=== PATIENT | male | born 1955 | race Caucasian/White ===

== ENCOUNTER 2024-03-25 13:55 | Inpatient (IN) | payer MEDICARE, SELFPAY ==
[2024-03-25 13:57] VITALS: BP 163/104; PULSE 92; RESP 18; TEMP 36.3; O2SAT 100
[2024-03-25 16:29] VITALS: BP 179/98; O2SAT 97
[2024-03-25 16:33] VITALS: BMI 24.9
--- NOTE | 2024-03-25 17:37 | US_ITS ---
EXAM: VENOUS DUPLEX IMAG/CHRIS EXTREM CLINICAL HISTORY: Bilateral edema. COMPARISON: None. TECHNIQUE: Grayscale, color flow and doppler analysis of the bilateral lower extremity deep venous system. FINDINGS: There is no intraluminal echogenicity to suggest acute or chronic deep venous thrombosis. Appropriate respiratory variation, augmentation and venous compression is noted. Bilateral soft tissue edema is noted. US/Venous Duplex Imag/Chris Extrem IMPRESSION: No sonographic evidence of a deep venous thrombosis. Reading Location: [id number]
--- NOTE | 2024-03-25 17:37 | EKG12_ITS ---
Test Reason : Blood Pressure : */* mmHG Vent. Rate : 88 BPM Atrial Rate : 88 BPM P-R Int : 182 ms QRS Dur : 110 ms QT Int : 372 ms P-R-T Axes : 29 -9 53 degrees QTcB Int : 450 ms Poor data quality, interpretation may be adversely affected Normal sinus rhythm Minimal voltage criteria for LVH, may be normal variant ( Esvin product ) Borderline ECG Confirmed by SINA PERAZA, JENY ([id number]), editor house organ MALIK VAUGHAN ([id number]) on 03/28/2024 7:23:07 AM Referred By: Confirmed By: JENY ANDINO MD
--- NOTE | 2024-03-25 17:37 | CT_ITS ---
PROCEDURE: SPINE LUMBAR WITHOUT CONTRAST REASON FOR EXAM: Unknown indication.. TECHNIQUE: Lumbar spine CT without contrast. COMPARISON: None. FINDINGS: Vertebrae: Large lytic lesion within the L2 and S1. Additional smaller lytic lesions throughout the remainder of the visualized spine. Alignment: S shaped scoliosis. [id number] degenerative changes throughout the visualized spine. Sacrum: Visualized upper sacrum and SI joints are unremarkable. Bilateral renal calculi. Severely enlarged prostate with internal calcifications. Enlarged bilateral iliac lymph nodes. 1 left pelvic sidewall lymph node measures [address]/Spine Lumbar without Contrast IMPRESSION: Lytic lesions throughout the visualized spine suspicious for metastatic disease . Large lytic lesions within S1 and L2 suspicious for an imminent pathologic frac ture. Bilateral nephrolithiasis. Severely enlarged prostate with internal calcifications suspicious for an under lying mass. Correlate with PSA. Pelvic lymphadenopathy suspicious for metastatic disease. One or more dose reduction techniques were used (e.g., Automated exposure contr ol, adjustment of the mA and/or kV according to patient size, use of iterative reconstruction technique). Reading Location: [id number]
[2024-03-25] MEDS: Ondansetron 4 MG/2 ML Vial IV (17:52)
[2024-03-25] MEDS: Morphine 4 MG/ML Syringe IV (17:52)
[2024-03-25 17:59] LABS: Bacteria 0 SEEN /hpf (None Seen); Mucous, Urine 0 SEEN /hpf (<or=2+)
[2024-03-25 18:00] VITALS: BP 176/96; PULSE 88; RESP 18; O2SAT 99
--- NOTE | 2024-03-25 18:00 | EX.ED.DYSGE1 ---
HPI History of Present Illness Chief Complaint: Edema Narrative Narrative: Chief complaint and HPI: Bilateral lower extremity edema and left leg pain. 69-year-old male with past medical history of Parkinson's disease, HTN, peripheral edema presents for evaluation of bilateral lower extremity edema and left leg pain. Patient states that he has had right lower extremity for several years. He had a huge cardiac workup and 2022 with the [facility]. He was able to show me the results on his phone. He states that he was not diagnosed with CHF but was put on Lasix. He had a stress test that was unremarkable. Patient states since then he has developed bilateral lower extremity swelling. Patient states that the left lower extremity has been swelling for about a year. He denies any recent travel or surgery. No history of DVT. Patient states for the past 2 weeks he has been having throbbing pain from his left buttocks down into his left lower extremity. Triage note states that it has been numb for a week. Patient denies numbness to me. I asked him if it feels like [id number] or tingling. He states now it has throbbing pain. He states that the pain is making it difficult to ambulate at home. He denies any recent fall or injury. He states that he did previously injure his back years ago. Denies weakness, urinary retention, stool or urinary incontinence, saddle anesthesia, recent invasive manipulation of the spine, intravenous drug use, or fever. Denies any shortness of breath, chest pain abdominal pain, nausea, vomiting, dysuria. Patient states he could not take the pain today which is why he presents. Review of systems: See HPI Medications: As listed on the chart Allergies: As listed on the chart PFSH: Per chart Vital signs: As listed on the chart. Reviewed. Physical exam: Gen: A&O x3, NAD Head: Normocephalic, atraumatic Eyes: No sclera icterus, conjunctiva clear, PERRL, EOMI ENT: Moist mucous membranes Neck: Trachea midline, No JVD, full range of motion, nontender CV: RRR, no murmurs, +2 pitting peripheral edema bilaterally Resp: Lungs CTA BL, no w/r/c GI: Abd soft, non-distended, non-tender, no r/r/g Musc: Moves all extremities but has pain in his left buttock that radiates down his left leg with movement of the left lower extremity, no midline spinal tenderness, no bony step-offs, no signs of trauma or infection, mild tenderness to palpation of the left paraspinal musculature of the lumbar spine, no deformity, strength +4/5 in both bilateral lower extremities-states this is his baseline, DTR +2/5, sensation intact, no saddle paresthesias Skin: Warm, dry, intact Neuro: Alert, oriented, grossly intact, sensation intact, no focal deficits Psych: Cooperative, appropriate mood and affect PFSH PFS Medical History no medical history Home Medications ?Medication ?Instructions ?Recorded ?Last Taken ?Type carbidopa 25 mg-levodopa 100 mg 3 tab PO TID 03/25/24 Unknown History tablet metoprolol succinate 25 mg 25 mg PO DAILY 03/25/24 Unknown History tablet,extended release 24 hr omega 5-vnf-snb-fish oil 1,200 mg cap PO 03/25/24 Unknown History (144 mg-216 mg) capsule (Fish Oil) Allergy/AdvReac Type Severity Reaction Status Date / Time No Known Allergies Allergy Verified 03/25/24 13:56 Family History no significant family his Surgical History no surgical history Social History Smoking Status: Never smoker EXAM Physical Exam Const Vital Signs: 03/25/24 13:57 03/25/24 16:29 03/25/24 18:00 Temperature 97.4 F L Temperature Source Oral Pulse Rate 92 88 Respiratory Rate 18 18 Blood Pressure 163/104 H 179/98 H 176/96 H Blood Pressure Mean 123 125 122 Pulse Ox 100 97 99 Oxygen Delivery Method Room Air Room Air Room Air 03/25/24 20:00 03/25/24 20:49 03/25/24 22:00 Temperature 98.7 F Temperature Source Pulse Rate 90 95 93 Respiratory Rate 16 18 16 Blood Pressure 165/99 H 184/114 H 174/99 H Blood Pressure Mean 121 137 124 Pulse Ox 97 97 93 Oxygen Delivery Method Room Air Room Air 03/26/24 00:00 Temperature Temperature Source Pulse Rate 95 Respiratory Rate 16 Blood Pressure 162/94 H Blood Pressure Mean 116 Pulse Ox 95 Oxygen Delivery Method Room Air MDM MDM MDM Narrative Medical decision making narrative: 69-year-old male with past medical history of Parkinson's disease, HTN, peripheral edema presents for evaluation of bilateral lower extremity edema and left leg pain. Differential diagnosis includes but is not limited to CHF, DVT, sciatica, radiculopathy, pathologic fracture, UTI, electrolyte abnormality. Morphine and Zofran ordered for symptoms. Laboratory workup ordered including CT lumbar spine and bilateral venous duplex. There is no neurologic findings to suggest an acute cauda equina syndrome therefore I do not think any emergent MRI is warranted at this time. EKG and chest x-ray reviewed see below. CBC without leukocytosis or anemia. Coagulation panel unremarkable. BMP without significant electrolyte abnormality or ESSENCE. Troponin unremarkable. BNP unremarkable. UA positive for blood and negative for UTI. Venous duplex negative. CT of the lumbar spine shows lytic lesions throughout the visualized spine suspicious for metastatic disease. There is a large lytic lesion within S1 and L2 suspicious for an imminent pathologic fracture. Bilateral nephrolithiasis. Severely enlarged prostrate with internal calcifications suspicious for an underlying mass. Pelvic lymphadenopathy suspicious for metastatic disease. I suspect patient's bilateral lower extremity swelling may be secondary to his pelvic lymphadenopathy. His pain is likely secondary to his new diagnosis of likely prostate cancer with metastatic disease. Patient will warrant admission and further management and workup. I updated the patient as well as his daughter with all of the findings. Patient is agreement to plan. I spoke with the hospitalist service, Dr. Davila. She spoke with the spinal surgeon Dr. Robles who recommends transfer to a tertiary care facility as if he develops fracture he will likely need surgery which we are unable to manage here at [facility]. I updated the family and they are in agreement with plan. I reached out to [facility], [facility] and no beds are available at this time for transfer. I did contact and spoke with their spine orthopedic surgeon Dr. Cosme. He agrees with transfer to however recommends admission via the oncology service. He did state that if the patient remains here in our hospital in the morning he recommends MRI of the entire spine. He agrees that no emergent MRI is needed at this time. I spoke with the oncology team Dr. Gutierrez. With . He accepted the transfer to the oncology service. At this point in time there is no beds available at . Likely will not get transferred this evening. I spoke with Dr. Davila about this and she accepted admission to [facility] until transfer can be able to be arranged. EKG: Interpreted by me/EM physician: EKG shows normal sinus rhythm with LVH. No acute ischemic changes. Heart rate 88. Diagnostic: Interpreted by me/EM physician: Chest x-ray not pneumonia, effusion, cardiomegaly, pneumothorax Impression: 1. Lytic lesions throughout the lumbar spine suspicious for metastatic disease 2. Suspected prostate cancer 3. Pelvic lymphadenopathy 4. Bilateral peripheral edema 5. Left lower extremity pain/radiculopathy Lab Data Labs: Laboratory Results - last 24 hr 03/25/24 03/25/24 17:45 17:50 WBC 7.8 RBC 4.53 L Hgb 13.8 Hct 41.4 MCV 91.4 MCH 30.5 MCHC 33.3 RDW Std Deviation 40.9 RDW Coeff of Nguyễn 12.3 Plt Count 267 MPV 9.3 Immature Gran % (Auto) 1.400 H Neut % (Auto) 76.1 H Lymph % (Auto) 13.7 L [place] % (Auto) 7.0 Eos % (Auto) 1.3 Baso % (Auto) 0.5 Absolute Neuts (auto) 6.0 Absolute Lymphs (auto) 1.07 Nucleated RBC % 0 PT 14.4 INR 1.1 APTT 28.5 Sodium 141 Potassium 3.4 L Chloride 107 Carbon Dioxide 28.0 Anion Gap 6 BUN 22 H Creatinine 0.99 Estim Creat Clear Calc 75.12 Est GFR (MDRD) Af Amer 96 Est GFR (MDRD) Non-Af 79 BUN/Creatinine Ratio 22.3 H Glucose 96 Calcium 9.8 Troponin I High Sens 15 B-Natriuretic Peptide 60.7 Urine Color Yellow Urine Clarity Clear Urine pH 7.0 Ur Specific [place] 1.010 Urine Protein 15 H Urine Glucose (UA) Normal Urine Ketones 5 H Urine Occult Blood 50 H Urine Nitrite Negative Urine Bilirubin Negative Urine Urobilinogen Normal Ur Leukocyte Esterase Negative Urine RBC 0-5 SEEN Urine WBC 0-5 SEEN Ur Squamous Epith Cells 0-5 SEEN Amorphous Sediment 1+ Urine Bacteria 0 SEEN Coarse Granular Casts 0-5 SEEN Urine Mucus 0 SEEN Radiography Diagnostic Testing: Clinical Impression(s) from Imaging Studies Lumbar Spine CT 03/25/24 17:37 IMPRESSION: Lytic lesions throughout the visualized spine suspicious for metastatic disease. Large lytic lesions within S1 and L2 suspicious for an imminent pathologic fracture. Bilateral nephrolithiasis. Severely enlarged prostate with internal calcifications suspicious for an underlying mass. Correlate with PSA. Pelvic lymphadenopathy suspicious for metastatic disease. One or more dose reduction techniques were used (e.g., Automated exposure control, adjustment of the mA and/or kV according to patient size, use of iterative reconstruction technique). Reading Location: [facility] Venous Duplex 03/25/24 17:37 IMPRESSION: No sonographic evidence of a deep venous thrombosis. Reading Location: [facility] Chest X-Ray 03/25/24 18:09 IMPRESSION: No acute cardiopulmonary abnormalities. No acute cardiopulmonary abnormalities. Reading Location: [facility] Discharge Plan Triage Chief Complaint: Edema ED Provider: Ivan Flores Dx/Rx/DC Orders Prescriptions: No Action metoprolol succinate 25 mg tablet extended release 24 hr 25 mg PO DAILY carbidopa-levodopa 25-100 mg tablet 3 tab PO TID omega 8-yqs-qzb-fish oil [Fish Oil] 1,200 (144-216) mg capsule PO Primary Care Provider: Danna Delgadillo OBSERVATORY DIRECTOR Referrals: Danna Delgadillo OBSERVATORY DIRECTOR, OBSERVATORY DIRECTOR-C [Primary Care Provider] - Print Language: Sami
[2024-03-25 18:03] LABS: Color, Urine Yellow (Yellow); Glucose, Dipstick Normal (Normal); Ketone-Dipstick 5 mg/dl (Negative); Leukocyte Esterase-Dipstick Negative /ul (Negative); Nitrite-Dipstick Negative (Negative); Occult Blood-Urine 50 /ul (Negative); Protein-Dipstick 15 mg/dl (Negative); Urine Bilirubin Dipstick Negative (Negative); Urine Clarity Clear (Clear); Urine Urobilinogen Normal (Normal)
[2024-03-25 18:04] LABS: Absolute Lymphocyte Count 1.07 X10^3/uL (0.83-4.51); Basophil# 0.04 X10^3/uL; Basophil% 0.5 % (0-1); Eosinophils% 1.3 % (0-5); Hematocrit 41.4 % (40-54); Hemoglobin 13.8 g/dL (13.0-16.5); Lymphocyte # 1.07 X10^3/ul (0.83-4.51); Lymphocyte % 13.7 % (19-41); Mean Corp Hgb Conc 33.3 g/dL (32-36); Mean Corpuscular Hgb 30.5 pg (27.0-32.0); Mean Corpuscular Volume 91.4 fL (80-94); Mean Platelet Vol. 9.3 fl (6.2-12.0); Monocyte# 0.55 X10^3/uL; NRBC Flagged by Analyzer 0 % (0-5); Neutrophil # 5.96 X10^3/uL (2.7-7.7); Neutrophil % 76.1 % (47-70); Platelet Count 267 K/mm3 (150-450); RBC Distribution Width CV 12.3 % (11.6-14.6); RBC Distribution Width SD 40.9 fl (35.1-43.9); Red Blood Count 4.53 M/mm3 (4.6-6.2); White Blood Count 7.8 K/mm3 (4.4-11.0)
--- NOTE | 2024-03-25 18:09 | RAD_ITS ---
PROCEDURE: CHEST 1 VIEW (PORTABLE) REASON FOR EXAM: Left leg numbness for 1 week. TECHNIQUE: Frontal view of the chest. COMPARISON: None. FINDINGS: The cardiac and mediastinal contours are normal. Mild left basilar linear atelectasis. Calcified right perihilar lymph nodes. RAD/Chest 1 View (Portable) IMPRESSION: No acute cardiopulmonary abnormalities. No acute cardiopulmonary abnormalities. Reading Location: [id number]
[2024-03-25 18:21] LABS: International Normalized Ratio 1.1; Partial Thromboplast Time 28.5 Seconds (24.1-36.2); Prothrombin Time (Protime)PT. 14.4 SECONDS (11.7-14.9)
[2024-03-25 18:30] LABS: Anion Gap 6 (5-15); BUN 22 mg/dL (7-18); BUN/Creat Ratio 22.3 RATIO (10-20); Calcium,Total 9.8 mg/dL (8.5-10.1); Chloride 107 mmol/L (98-107); Creatinine, Serum 0.99 mg/dL (0.70-1.30); EST Glomerular Filtration Rate 79 mL/min (>60); Est Glom Filt Rate - Afr Amer 96 mL/min (>60); Estimated Creatinine Clearance 75.12 ml/min; Glucose 96 mg/dL (74-106); Potassium 3.4 mmol/L (3.5-5.1); Sodium Level 141 mmol/L (136-145); Troponin-I HS 15 pg/mL (3.0-78.0)
[2024-03-25 18:33] LABS: BNP,B-Type NATRIURETIC PEPTIDE 60.7 pg/mL (0-100)
[2024-03-25 18:58] LABS: Amorphous Sediment 1+; Coarse Granular Cast 0-5 SEEN /lpf (0-5 /lpf); Red Blood Cells-Urine 0-5 SEEN /hpf (0-5); Squamous Epithelial Cells - UA 0-5 SEEN /hpf (0-5); White Blood Cells 0-5 SEEN /hpf (0-5)
[2024-03-25 20:00] VITALS: BP 165/99; PULSE 90; RESP 16; O2SAT 97
[2024-03-25 20:49] VITALS: BP 184/114; PULSE 95; RESP 18; TEMP 37.1; O2SAT 97
[2024-03-25 22:00] VITALS: BP 174/99; PULSE 93; RESP 16; O2SAT 93
--- NOTE | 2024-03-25 22:58 | ED.RN ---
THIS DETASSELER CALLED [facility], [facility] AND [facility] ALL DECLINED PT DUE TO CRITICAL CAPACITY.
--- NOTE | 2024-03-25 23:44 | PCM.HP.STD ---
[facility] - General General Date of Admission: 03/25/24 Date of Service: 03/25/24 Chief Complaint: Lumbar back pain with LLE radiculopathy, worsening LE edema. HPI Narrative The patient is a 69-year-old male with past medical history hypertension, Parkinson's disease as well as chronic distal lower extremity edema with chronic pain associated ongoing for several years with significant previous evaluation at the [facility] who presents to the [facility] ED on 03/25/2024 secondary to significant bilateral lower extremity swelling ongoing for the last year however over the last 2 weeks has had increasing throbbing discomfort into his left buttock and down his left lower extremity with paresthesias ongoing for a week described as [id number] making it difficult to ambulate with no recent falls or injuries but does state years ago he did have an injury to his back with no specific focal weakness or saddle paresthesias or urinary issues or bowel issues but given pain prompted ED evaluation. He states he was recently seen and evaluated with an [employer] and cardiology 02/25/2024 and thus far his cardiac workup has not been marked with planned future upcoming echocardiogram. He notes that his left lower extremity feels like it is constantly throbbing but no severe pain. He does note ongoing lumbar back discomfort again more dull aching and constant as opposed to stabbing. He does report approximate 10 pound weight gain but this is because he has been less active and watching what he is been eating although his appetite has been decreased. He denies any fevers or chills or night sweats. Workup in the ED included T97.4, heart rate 92, BP 163/104, respiratory rate 18, 100% on room air with most recent repeat vitals T98.7, heart rate 95, BP 184/114, respiratory rate 18, 97% on room air, CBC with WBC 7.8, hemoglobin 13.8, platelet 267 with increased immature granulocytes, unremarkable coags, BMP with potassium 3.4, BUN/creatinine 22/0.99, GFR 79, troponin 15, BNP 60.7, urinalysis unremarkable, CT of the lumbar spine without contrast with lytic lesions throughout the visualized spine suspicious for metastatic disease, large lytic lesions within S1 and L2 suspicious for imminent pathologic fracture, bilateral nephrolithiasis, severely enlarged prostate with internal calcifications suspicious for underlying mass, pelvic lymphadenopathy suspicious for metastatic disease, bilateral lower extremity duplex ultrasounds with no evidence of DVT, chest x-ray no acute cardiopulmonary findings. Given these findings hospitalist discussed case with orthospine and given concerns for impending pathological fractures recommended transfer to tertiary facility for these to be evaluated for potential surgical intervention. Patient was accepted at (Dr. Gutierrez) with Case discussed per ED with orthopedic surgery as well as the oncology service who agreed these interventions were necessary however there were no beds available thus patient was admitted to [facility] temporarily until bed available. The orthopedic service requested that if patient did not transfer in a timely fashion for service to obtain MRI of the cervical, thoracic and lumbar spine with contrast in the interim. [facility] Medical History HTN (hypertension) Parkinson disease Medical History no medical history Home Medications ?Medication ?Instructions ?Recorded ?Last Taken ?Type carbidopa 25 mg-levodopa 100 mg 3 tab PO TID 03/25/24 Unknown History tablet metoprolol succinate 25 mg 25 mg PO DAILY 03/25/24 Unknown History tablet,extended release 24 hr omega 5-jio-tdi-fish oil 1,200 mg cap PO 03/25/24 Unknown History (144 mg-216 mg) capsule (Fish Oil) Allergy/AdvReac Type Severity Reaction Status Date / Time No Known Allergies Allergy Verified 03/25/24 13:56 Family History (Updated 03/26/24 @ 00:[address] Sanaz Davila MD) Mother No problems noted. Father CAD (coronary artery disease) Heart disease Hypertension Myocardial infarction Family History no significant family his Surgical History History of lithotripsy Surgical History no surgical history Social History (Updated 03/26/24 @ 00:[address] Sanaz Davila MD) household members: family Smoking Status: Never smoker alcohol intake: never substance use type: does not use ROS ROS Narrative Admission Review of Systems: CONSTITUTIONAL: No weight loss, fever, chills, + weakness or fatigue. HEENT: Eyes: No visual loss, blurred vision, double vision or yellow sclerae. Ears, Nose, Throat: No hearing loss, sneezing, congestion, runny nose or sore throat. SKIN: No rash or itching, lesions, wounds. CARDIOVASCULAR: + Significantly increased bilateral lower extremity edema. No chest pain, chest pressure or chest discomfort, palpitations, orthopnea, syncopal events. RESPIRATORY: No shortness of breath, cough or sputum, wheezing, hemoptysis. GASTROINTESTINAL: + Decreased appetite. No nausea, vomiting or diarrhea, abdominal pain, melena, BRBPR. GENITOURINARY: No dysuria, frequency, urgency or retention. NEUROLOGICAL: + Debility, weakness, lumbar pain with left lower extremity radiculopathy. No headache, dizziness, syncope, paralysis, ataxia, focal weakness, change in bowel or bladder control, seizure. MUSCULOSKELETAL: + muscle, back pain, joint pain or stiffness. HEMATOLOGIC: No anemia, bleeding or bruising. LYMPHATICS: No enlarged nodes. No history of splenectomy. PSYCHIATRIC: No history of depression or anxiety. ENDOCRINOLOGIC: No reports of sweating, cold or heat intolerance. No polyuria or polydipsia. ALLERGIES: No history of asthma, hives, eczema or rhinitis. Vital Signs Vital Signs Vital Signs: 03/25/24 13:57 03/25/24 16:29 03/25/24 18:00 Temperature 97.4 F L Temperature Source Oral Pulse Rate 92 88 Respiratory Rate 18 18 Blood Pressure 163/104 H 179/98 H 176/96 H Blood Pressure Mean 123 125 122 Pulse Ox 100 97 99 Oxygen Delivery Method Room Air Room Air Room Air 03/25/24 20:00 03/25/24 20:49 03/25/24 22:00 Temperature 98.7 F Temperature Source Pulse Rate 90 95 93 Respiratory Rate 16 18 16 Blood Pressure 165/99 H 184/114 H 174/99 H Blood Pressure Mean 121 137 124 Pulse Ox 97 97 93 Oxygen Delivery Method Room Air Room Air Weight Weight: 183 lb 13.848 oz Body Mass Index (BMI) 24.9 Physical Exam Narrative Physical Examination: General: Awake, alert, oriented x 3 and cooperative, seated upright in the ED bed, notes ongoing throbbing to the lower extremity and discomfort of the lumbar back pain primarily left-sided. Skin: Normal color, normal turgor, no icterus, no cyanosis except very staged ecchymoses, abrasions, venous stasis disease to bilateral lower extremities evident. HEENT: AT/NC, EOMI, PERRLA, mildly dry MM, no carotid bruits or JVD noted. Lungs: Diminished, greater bases, appropriate effort, no rales, ronchi or wheezing. Heart: Mildly tachycardic with regular rhythm; no gallop, rub audible. Abdomen: Soft, NTTP, ND, distant normal BS, no appreciated HSM. Extremities: No cyanosis, no clubbing, significant pedal to upper thigh edema bilaterally. Neurological: Patient awake, alert, oriented as noted, cognitive function intact; pupils equally reactive to light and accommodation, cranial nerves gross normal, moving all 4 extremities, no focal deficits, strength severely globally decreased. Psychiatric: Affect appears flat, no acute evidence of depressive or anxiety feelings but given recent discussions with likely new onset metastatic cancer does appear to be in somewhat of a state of shock. Results Lab / Micro Data 03/25/24 17:50 03/25/24 17:50 Labs: Laboratory Results - last 24 hr 03/25/24 17:45: Urine Color Yellow, Urine Clarity Clear, Urine pH 7.0, Ur Specific [place] 1.010, Urine Protein 15 H, Urine Glucose (UA) Normal, Urine Ketones 5 H, Urine Occult Blood 50 H, Urine Nitrite Negative, Urine Bilirubin Negative, Urine Urobilinogen Normal, Ur Leukocyte Esterase Negative, Urine RBC 0-5 SEEN, Urine WBC 0-5 SEEN, Ur Squamous Epith Cells 0-5 SEEN, Amorphous Sediment 1+, Urine Bacteria 0 SEEN, Coarse Granular Casts 0-5 SEEN, Urine Mucus 0 SEEN 03/25/24 17:50: WBC 7.8, RBC 4.53 L, Hgb 13.8, Hct 41.4, MCV 91.4, MCH 30.5, MCHC 33.3, RDW Std Deviation 40.9, RDW Coeff of Nguyễn 12.3, Plt Count 267, MPV 9.3, Immature Gran % (Auto) 1.400 H, Neut % (Auto) 76.1 H, Lymph % (Auto) 13.7 L, [place] % (Auto) 7.0, Eos % (Auto) 1.3, Baso % (Auto) 0.5, Absolute Neuts (auto) 6.0, Absolute Lymphs (auto) 1.07, Nucleated RBC % 0, PT 14.4, INR 1.1, APTT 28.5, Sodium 141, Potassium 3.4 L, Chloride 107, Carbon Dioxide 28.0, Anion Gap 6, BUN 22 H, Creatinine 0.99, Estim Creat Clear Calc 75.12, Est GFR (MDRD) Af Amer 96, Est GFR (MDRD) Non-Af 79, BUN/Creatinine Ratio 22.3 H, Glucose 96, Calcium 9.8, Troponin I High Sens 15, B-Natriuretic Peptide 60.7 Imaging Radiology Impression Lumbar Spine CT 03/25/24 17:37 IMPRESSION: Lytic lesions throughout the visualized spine suspicious for metastatic disease. Large lytic lesions within S1 and L2 suspicious for an imminent pathologic fracture. Bilateral nephrolithiasis. Severely enlarged prostate with internal calcifications suspicious for an underlying mass. Correlate with PSA. Pelvic lymphadenopathy suspicious for metastatic disease. One or more dose reduction techniques were used (e.g., Automated exposure control, adjustment of the mA and/or kV according to patient size, use of iterative reconstruction technique). Reading Location: [facility] Venous Duplex 03/25/24 17:37 IMPRESSION: No sonographic evidence of a deep venous thrombosis. Reading Location: [facility] Chest X-Ray 03/25/24 18:09 IMPRESSION: No acute cardiopulmonary abnormalities. No acute cardiopulmonary abnormalities. Reading Location: [facility] Assessment & Plan Assessment/Plan (1) Metastatic cancer to spine: (2) Pathologic fracture: PLAN: Plan The patient is a 69-year-old male with past medical history hypertension, Parkinson's disease as well as chronic distal lower extremity edema with chronic pain associated ongoing for several years with significant previous evaluation at the [facility] who presents to the [facility] ED on 03/25/2024 secondary to significant bilateral lower extremity swelling ongoing for the last year however over the last 2 weeks has had increasing throbbing discomfort into his left buttock and down his left lower extremity with paresthesias ongoing for a week described as [id number] making it difficult to ambulate with no recent falls or injuries but does state years ago he did have an injury to his back with no specific focal weakness or saddle paresthesias or urinary issues or bowel issues but given pain prompted ED evaluation. #1. Significant bilateral lower extremity lymphedema, lumbar back pain with radiculopathy to the left lower extremity secondary to new diagnosis metastatic cancer suspected prostate cancer with metastases to the bone including lytic lesions in the spine with concern for S1 and L2 imminent pathologic fracture: Given there are no beds unfortunately at and patient is awaiting transfer in the interim will admit to medical surgical floor, will minimize activity, per recommendation of the orthopedic surgery service at will plan to obtain MRI of the cervical, thoracic and lumbar spine with contrast and disc will need to be obtained for transfer, maintain on fall precautions, will initiate low-dose gabapentin regimen and will have both oral and IV narcotic for breakthrough discomfort. PSA level requested. Will hold off on any therapy assessments as concern for the spine and imminent fractures. As discussed with facility will avoid involving oncology/urology at [facility] unless transfer timeline is excessively long. Will place neck ute wraps to bilateral lower extremity. #2. Hypokalemia: Admission K+ 3.4, magnesium level requested, supplementation given, repeat level in AM. #3. Possible Chronic Kidney Disease Stage II per GFR trending however no comparison labs: Admission BUN/Cr 22/0.99, GFR 79, baseline renal function unknown the certainly could be acutely altered but uncertain, repeat BMP in AM to further elucidate chronicity. #4. Hypertension: Continue home regimen including metoprolol with hold parameters as needed, PRN hydralazine. #5. Parkinson's disease: Complicates presentation, maintain on fall precautions, will continue patient home Sinemet regimen, PT/OT/case management consulted for discharge planning. #6. DVT prophylaxis: Lovenox. #7. CODE status: Patient JOSELUIS is his daughter Allie and living will is currently in place. Discussed CODE status at length including difference between FULL code, DNR-CCA and DNR-CC status. Following discussions about the differences in these status, requested DNR-CCA with allowance of short term intubation. Advanced Care Planning Face to Face Time: 16 minutes. Charges/Coding Visit Charges Inpatient E&M: 28718 Init Hosp L3 Procedures Hospitalists Procedures: 47961 Advncd Care Plan 30 Min
[2024-03-26] VITALS (11 sets, daily range): BP systolic 116–183; BP diastolic 65–103; PULSE 81–98; RESP 16–18; TEMP 36.3–37; O2SAT 94–100; BMI 25.0
[2024-03-26 01:37] LABS: Magnesium 2.3 mg/dL (1.6-2.6); PSA,Total- Diagnostic > 2000.00 ng/mL (0.0-4.0); Phosphorus 2.9 mg/dL (2.5-4.9)
[2024-03-26] MEDS: hydrALAZINE 20 MG/ML Vial 10 MG IV (02:19)
[2024-03-26] MEDS: 0.9% Saline Lock 10 ML Syringe IV ×3 (02:19→20:11)
[2024-03-26] MEDS: Morphine 2 MG/ML Syringe IV (02:19)
[2024-03-26] MEDS: 0.9% Normal Saline (1000mL) 1,000 ML 100 ML IV (02:24)
[2024-03-26] MEDS: Potassium Chloride Oral Tablet 20 MEQ 40 MEQ PO (02:31)
--- NOTE | 2024-03-26 05:55 | MRI_ITS ---
PROCEDURE: MRI lumbar spine without IV contrast REASON FOR EXAM: Pain, prostate carcinoma, metastatic disease TECHNIQUE: Multisequence multiplanar MR images of the lumbar spine were obtained without the administration of intravenous contrast. COMPARISON: None. FINDINGS: Vertebral body heights are maintained. Negative for acute fracture. Multiple marrow replacing lesions throughout the lumbosacral spine, greatest at L2 and S1. S1 marrow replacing lesion is expansile and eccentric to the left and measures 4.9 x 6.3 cm in axial dimensions and completely encases the left S1 nerve root. This also results in severe spinal stenosis at the level of S1 causing effacement of the thecal sac. Marrow replacing lesions in the pelvis also noted, greatest in the posterior left iliac bone. Mild dextroscoliosis. Conus medullaris is intact and terminates at L1. Paraspinal muscle atrophy, greater on the left. L1-2: Minimal posterior disc bulge. Mild bilateral facet arthrosis. No significant spinal stenosis. Mild bilateral foraminal narrowing. L2-3: Posterior disc bulge eccentric to the left. Moderate bilateral facet arthrosis and ligamentum flavum hypertrophy. Mild/moderate spinal stenosis including narrowing of the left lateral recess. Mild right and moderate/severe left foraminal narrowing. L3-4: Posterior disc bulge. Mild bilateral facet arthrosis and ligamentum flavum hypertrophy. Borderline mild spinal stenosis. Moderate bilateral foraminal narrowing. L4-5: Minimal posterior disc bulge. Moderate bilateral facet arthrosis and ligamentum flavum hypertrophy. No significant spinal stenosis. Mild left and mild/moderate right foraminal narrowing. L5-S1: Minimal posterior disc bulge. Moderate bilateral facet arthrosis. Expansile metastatic lesion in the left S1 vertebral body contributes to severe spinal stenosis and encasement of the left S1 nerve root. Moderate/severe bilateral foraminal narrowing, greater on the left. MRI/Spine Lumbar (Routine) IMPRESSION: 1. Diffuse osseous metastatic disease including a large expansile lesion in the left S1 vertebral body resulting in severe spinal stenosis at L5-S1 and encasement of the left S1 nerve root. Moderate/severe bi lateral foraminal narrowing is also present at this level, greater on the left. 2. Acquired multilevel spinal stenosis and foraminal narrowing as above. Reading Location: [facility]
--- NOTE | 2024-03-26 05:55 | MRI_ITS ---
PROCEDURE: SPINE CERVICAL (ROUTINE) REASON FOR EXAM: Metastatic lesions to the spine. TECHNIQUE: Cervical spine MRI without intravenous gadolinium-based contrast. COMPARISON: None. FINDINGS: Vertebrae: Cervical vertebral body heights are preserved. Extensive mixed intensity lesions throughout the visualized spine suspicious for metastatic disease. Only visualized on sagittal views is mild compression deformity of T2 with posterior osseous retropulsion. Alignment: Normal. No spondylolisthesis. Spinal Cord: Cervical spinal cord is of normal size and signal intensities. Structures at the foramen magnum are unremarkable. C2-3: No significant central or neural foraminal stenosis. C3-4: No significant central or neural foraminal stenosis. C4-5: Facet and uncovertebral hypertrophy resulting in mild bilateral neural foraminal stenosis. No significant central stenosis. C5-6: Facet and uncovertebral hypertrophy resulting in moderate bilateral neural foraminal stenosis. No significant central stenosis. C6-7: No significant central or neural foraminal stenosis. C7-T1: No significant central or neural foraminal stenosis. MRI/Spine Cervical (Routine) IMPRESSION: Findings suspicious for diffuse osseous metastatic disease. Partially visualized T2 mild compression deformity with osseous retropulsion. Further characterization with thoracic spine MRI should be considered. Reading Location: [id number]
--- NOTE | 2024-03-26 05:55 | MRI_ITS ---
PROCEDURE: MRI thoracic spine without IV contrast REASON FOR EXAM: Pain, left leg numbness, prostate carcinoma TECHNIQUE: Multisequence multiplanar MR images of the thoracic spine were obtained without the administration of intravenous contrast COMPARISON: None. FINDINGS: Innumerable marrow replacing lesions throughout the entire thoracic spine most consistent with metastatic disease. Largest metastatic lesion within the T3 vertebral body on the right extending into the right pedicle (which is expanded) and causing mass effect on the right ventral spinal cord resulting in mild spinal stenosis. Associated severe right foraminal narrowing at T3-T4 also noted. No other significant spinal stenosis or foraminal narrowing. No focal disc abnormalities. Vertebral body heights are preserved. Alignment is maintained. Spinal cord is of normal caliber, contour and signal intensity. Paraspinal muscle atrophy. MRI/Spine Thoracic (Routine) IMPRESSION: Diffuse osseous metastatic disease throughout the thoracic spine, greatest invo lving the right T3 vertebral body and pedicle which are expanded and result in mild spinal stenosis as well as severe right f oraminal narrowing at T3-T4. Reading Location: [facility]
[2024-03-26] MEDS: Carbidopa/Levodopa 25/100 Tablet PO ×3 (06:21→22:05)
[2024-03-26 07:42] LABS: Absolute Lymphocyte Count 1.09 X10^3/uL (0.83-4.51); Absolute Neutrophil Count 5.6 X10^3/uL (2.0-7.7); Basophil# 0.04 X10^3/uL; Basophil% 0.5 % (0-1); Eosinophil# 0.09 X10^3/uL; Eosinophils% 1.2 % (0-5); Hematocrit 37.6 % (40-54); Hemoglobin 12.3 g/dL (13.0-16.5); Lymphocyte # 1.09 X10^3/ul (0.83-4.51); Lymphocyte % 14.4 % (19-41); Mean Corp Hgb Conc 32.7 g/dL (32-36); Mean Corpuscular Hgb 29.4 pg (27.0-32.0); Mean Platelet Vol. 9.5 fl (6.2-12.0); Monocyte# 0.68 X10^3/uL; NRBC Flagged by Analyzer 0 % (0-5); Neutrophil % 74.2 % (47-70); Platelet Count 248 K/mm3 (150-450); RBC Distribution Width CV 12.2 % (11.6-14.6); RBC Distribution Width SD 40.3 fl (35.1-43.9); Red Blood Count 4.18 M/mm3 (4.6-6.2); White Blood Count 7.6 K/mm3 (4.4-11.0)
[2024-03-26 08:08] LABS: ALB/GLOB Ratio 0.8 RATIO (0.9-2.4); AST(SGOT) 18 U/L (15-37); Alanine Aminotransfer ALT/SGPT 11 U/L (16-61); Albumin, Serum 2.8 g/dL (3.2-5.0); Alkaline Phosphatase 135 U/L (45-117); Anion Gap 7 (5-15); BUN 20 mg/dL (7-18); Calcium,Total 9.6 mg/dL (8.5-10.1); Chloride 108 mmol/L (98-107); Creatinine, Serum 0.91 mg/dL (0.70-1.30); EST Glomerular Filtration Rate 87 mL/min (>60); Est Glom Filt Rate - Afr Amer 105 mL/min (>60); Estimated Creatinine Clearance 81.72 ml/min; Globulin 3.4 g/dL (2.2-4.2); Glucose 87 mg/dL (74-106); Potassium 3.5 mmol/L (3.5-5.1); Protein, Total 6.2 g/dL (6.4-8.2); Sodium Level 142 mmol/L (136-145)
[2024-03-26] MEDS: oxyCODONE 5 MG Tablet PO (08:12)
[2024-03-26] MEDS: Metoprolol(XL)Succ 25 MG Tablet PO (08:12)
[2024-03-26] MEDS: Gabapentin 100 MG Capsule PO ×3 (08:12→17:26)
[2024-03-26] MEDS: Senna/Docusate Sodium 1 Tablet 2 TABLET PO (08:12)
[2024-03-26] MEDS: Acetaminophen 325 MG Tablet 650 MG PO (08:12)
[2024-03-26] MEDS: Enoxaparin 40 MG/0.4 ML Syringe SC (08:12)
[2024-03-26] MEDS: tiZANidine HCl 2 MG Tablet 4 MG PO (09:41)
--- NOTE | 2024-03-26 11:43 | NURSING ---
spoke with [facility] transfer line and updated [phone]. said to inform radiology to push through images to PACS, MRI phoned and aware.
[2024-03-26] MEDS: Acetaminophen 500 MG Tablet 1000 MG PO ×2 (15:35→22:05)
--- NOTE | 2024-03-26 21:20 | PN.HOSP_ITS ---
Reason for Visit Reason for Visit: Diagnoses Secondary malignant neoplasm of bone (03/25/24) Pathological fracture, unspecified site, initial encounter for fracture (03/25/24) Subjective Subjective Saw patient at bedside earlier this afternoon, daughter present. Patient was down having his MRI spine done this morning. He was sitting back comfortably in bed, conversing normally, in no acute distress. He was reporting mild left lower back pain, similar to this morning. Had mild to moderate pain relief with IV morphine earlier today. No other acute concerns currently. Objective Data Objective Data Vital Signs: Vital Signs Temp Pulse Resp BP Pulse Ox O2 Del Method 98.6 F 85 16 124/66 H 94 Room Air 03/26/24 20:05 03/26/24 20:05 03/26/24 20:05 03/26/24 20:05 03/26/24 20:05 03/26/24 20:21 Oxygen Delivery Method Room Air Weight: 83.9 kg Body Mass Index (BMI) 25.0 Intake & Output: Intake and Output for Last 24 Hours 03/24/24 03/25/24 03/26/24 23:59 23:59 23:59 Intake Total 1478.33 / 1478.33 Output Total 950 / 950 Balance 528.33 / 528.33 Lab / Micro Data 03/26/24 06:55 03/26/24 06:55 Labs: Laboratory Results - last 24 hr 03/25/24 17:50: Phosphorus 2.9, Magnesium 2.3, Total PSA > 2000.00 H 03/26/24 06:55: WBC 7.6, RBC 4.18 L, Hgb 12.3 L, Hct 37.6 L, MCV 90.0, MCH 29.4, MCHC 32.7, RDW Std Deviation 40.3, RDW Coeff of Nguyễn 12.2, Plt Count 248, MPV 9.5, Immature Gran % (Auto) 0.700, Neut % (Auto) 74.2 H, Lymph % (Auto) 14.4 L, [place] % (Auto) 9.0, Eos % (Auto) 1.2, Baso % (Auto) 0.5, Absolute Neuts (auto) 5.6, Absolute Lymphs (auto) 1.09, Nucleated RBC % 0, Sodium 142, Potassium 3.5, Chloride 108 H, Carbon Dioxide 27.0, Anion Gap 7, BUN 20 H, Creatinine 0.91, Estim Creat Clear Calc 81.72, Est GFR (MDRD) Af Amer 105, Est GFR (MDRD) Non-Af 87, BUN/Creatinine Ratio 22.0 H, Glucose 87, Calcium 9.6, Total Bilirubin 0.90, AST 18, ALT 11 L, Alkaline Phosphatase 135 H, Total Protein 6.2 L, Albumin 2.8 L , Globulin 3.4, Albumin/Globulin Ratio 0.8 L Radiography Diagnostic Testing: Radiology Impression Chest X-Ray 03/25/24 18:09 IMPRESSION: No acute cardiopulmonary abnormalities. No acute cardiopulmonary abnormalities. Reading Location: [facility] Cervical Spine MRI 03/26/24 05:55 IMPRESSION: Findings suspicious for diffuse osseous metastatic disease. Partially visualized T2 mild compression deformity with osseous retropulsion. Further characterization with thoracic spine MRI should be considered. Reading Location: [facility] Lumbar Spine MRI 03/26/24 05:55 IMPRESSION: 1. Diffuse osseous metastatic disease including a large expansile lesion in the left S1 vertebral body resulting in severe spinal stenosis at L5-S1 and encasement of the left S1 nerve root. Moderate/severe bilateral foraminal narrowing is also present at this level, greater on the left. 2. Acquired multilevel spinal stenosis and foraminal narrowing as above. Reading [facility] Thoracic Spine MRI 03/26/24 05:55 IMPRESSION: Diffuse osseous metastatic disease throughout the thoracic spine, greatest involving the right T3 vertebral body and pedicle which are expanded and result in mild spinal stenosis as well as severe right foraminal narrowing at T3-T4. Reading Location: [facility] Physical Exam Const alert, oriented x3, no apparent distress and average body habitus Constitutional Narrative: Upper middle-aged male, sitting back comfortably in bed, conversing normally, in no acute distress. General Appearance: cooperative and comfortable HEENT normocephalic, head/scalp atraumatic, hearing grossly normal bilaterally, nasal mucous membranes and turbinates normal and moist oral mucous membranes Eyes PERRL, EOMs intact bilaterally and conjunctivae normal Neck full ROM Chest inspection of chest normal Resp normal respiratory effort, normal air movement, no use of accessory muscles and clear to auscultation bilaterally Cardio regular rate, regular rhythm, no murmurs and peripheral pulses 2+ throughout GI normal to inspection, nondistended, normoactive bowel sounds, soft to palpation, non-tender and non-distended Back/Spine Back/Spine Narrative: Mild tenderness to palpation diffusely in low back. Extremity normal to inspection, full ROM and no pedal edema Skin no rashes or lesions noted Neuro no focal motor deficits Speech: speech normal Psych mental status grossly normal Assessment & Plan Assessment/Plan (1) Prostate cancer: (2) Metastatic cancer to spine: PLAN: Plan Patient is a 69-year-old male who presented [facility] ED on 03/25/2024 with worsening low back pain with left leg radiculopathy. 1. Suspected new diagnosis of prostate cancer with spinal metastases ? CT lumbar spine on admit showed large lytic lesion within L2 and S1 with additional smaller lytic lesions throughout the remainder of the visualized spine, along with a severely enlarged prostate with internal calcifications and enlarged bilateral iliac lymph nodes. PSA greater than 2000. Low back pain and lower extremity edema presumed secondary to likely spinal metastases and poor venous return from lymphadenopathy. Plan is for transfer to , has been accepted to oncology, awaiting bed placement. Pain control here with scheduled Tylenol, p.o. tramadol and IV morphine as needed. Chronic medical conditions: ? Parkinson's disease: Continue home Sinemet. ? Hypertension: Continue home Toprol. DVT prophylaxis: Lovenox CODE STATUS: DNR CCA, okay to intubate Expected disposition: Transfer to once bed is available Total clinical time spent by myself addressing the patient's medical issues, reviewing all the data, and collaborating with patient's care team: 35 minutes. Charges/Coding Visit Charges Inpatient E&M: 16000 Subs Hosp L2
[2024-03-27 05:05] VITALS: BP 137/78; PULSE 76; RESP 16; TEMP 36.5; O2SAT 94
[2024-03-27] MEDS: Carbidopa/Levodopa 25/100 Tablet PO ×3 (05:10→22:05)
[2024-03-27] MEDS: Acetaminophen 500 MG Tablet 1000 MG PO ×3 (05:10→22:05)
[2024-03-27 05:12] VITALS: BMI 25.0
[2024-03-27 05:18] LABS: Hematocrit 35.6 % (40-54); Hemoglobin 11.9 g/dL (13.0-16.5); Mean Corp Hgb Conc 33.4 g/dL (32-36); Mean Corpuscular Hgb 30.7 pg (27.0-32.0); Mean Corpuscular Volume 91.8 fL (80-94); Platelet Count 231 K/mm3 (150-450); RBC Distribution Width CV 12.6 % (11.6-14.6); Red Blood Count 3.88 M/mm3 (4.6-6.2); White Blood Count 8.6 K/mm3 (4.4-11.0)
[2024-03-27 05:47] LABS: Anion Gap 6 (5-15); BUN 31 mg/dL (7-18); BUN/Creat Ratio 24.4 RATIO (10-20); Calcium,Total 9.1 mg/dL (8.5-10.1); Chloride 109 mmol/L (98-107); Creatinine, Serum 1.27 mg/dL (0.70-1.30); EST Glomerular Filtration Rate 59 mL/min (>60); Est Glom Filt Rate - Afr Amer 72 mL/min (>60); Estimated Creatinine Clearance 58.56 ml/min; Glucose 92 mg/dL (74-106); Potassium 3.5 mmol/L (3.5-5.1); Sodium Level 142 mmol/L (136-145)
[2024-03-27 05:52] LABS: Scan Indicated on CBC? Y/N NO
[2024-03-27 07:29] VITALS: O2SAT 96
--- NOTE | 2024-03-27 08:36 | NURSING ---
law secretary Eilzabeth BAUTISTA, called Hospital transfer line to inquire on bed availability. She was told to call back later when they had discharges. Chan ORTIZ
[2024-03-27 09:26] VITALS: BP 122/63; PULSE 95; RESP 16; TEMP 36.7; O2SAT 95
[2024-03-27] MEDS: Pantoprazole Sodium 40 MG Tablet PO (09:52)
[2024-03-27 09:53] VITALS: BP 122/63; PULSE 95
[2024-03-27] MEDS: Metoprolol(XL)Succ 25 MG Tablet PO (09:53)
[2024-03-27] MEDS: 0.9% Saline Lock 10 ML Syringe IV ×2 (09:56→22:06)
[2024-03-27] MEDS: Enoxaparin 40 MG/0.4 ML Syringe SC (10:14)
[2024-03-27] MEDS: Gabapentin 100 MG Capsule PO ×2 (12:31→17:39)
--- NOTE | 2024-03-27 14:48 | PCM.PN.HOSP ---
Reason for Visit Reason for Visit: Diagnoses Malignant neoplasm of prostate (03/25/24) Secondary malignant neoplasm of bone (03/25/24) Pathological fracture, unspecified site, initial encounter for fracture (03/25/24) Subjective Subjective Saw patient at bedside this morning, daughter present. Patient appeared similar to yesterday, was sitting back comfortably in bed and in no acute distress. Stated his pain felt moderately improved from admission and similar to yesterday. No other new concerns today. Objective Data Objective Data Vital Signs: Vital Signs Temp Pulse Resp BP Pulse Ox O2 Del Method 98.0 F 95 16 122/63 H 95 Room Air 03/27/24 09:26 03/27/24 09:53 03/27/24 09:26 03/27/24 09:53 03/27/24 09:26 03/27/24 09:33 Oxygen Delivery Method Room Air Weight: 83.9 kg Body Mass Index (BMI) 25.0 Intake & Output: Intake and Output for Last 24 Hours 03/25/24 03/26/24 03/27/24 23:59 23:59 23:59 Intake Total 1578.33 / 1578.33 310 / 310 Output Total 1200 / 1200 450 / 450 Balance 378.33 / 378.33 -140 / -140 Lab / Micro Data 03/27/24 04:24 03/27/24 04:24 Labs: Laboratory Results - last 24 hr 03/27/24 04:24: WBC 8.6, RBC 3.88 L, Hgb 11.9 L, Hct 35.6 L, MCV 91.8, MCH 30.7, MCHC 33.4, RDW Std Deviation 42.0, RDW Coeff of Nguyễn 12.6, Plt Count 231, MPV 10.0, Sodium 142, Potassium 3.5, Chloride 109 H, Carbon Dioxide 28.0, Anion Gap 6, BUN 31 H, Creatinine 1.27, Estim Creat Clear Calc 58.56, Est GFR (MDRD) Af Amer 72, Est GFR (MDRD) Non-Af 59 L, BUN/Creatinine Ratio 24.4 H, Glucose 92, Calcium 9.1 Radiography Diagnostic Testing: Radiology Impression Cervical Spine MRI 03/26/24 05:55 IMPRESSION: Findings suspicious for diffuse osseous metastatic disease. Partially visualized T2 mild compression deformity with osseous retropulsion. Further characterization with thoracic spine MRI should be considered. Reading Location: [facility] Lumbar Spine MRI 03/26/24 05:55 IMPRESSION: 1. Diffuse osseous metastatic disease including a large expansile lesion in the left S1 vertebral body resulting in severe spinal stenosis at L5-S1 and encasement of the left S1 nerve root. Moderate/severe bilateral foraminal narrowing is also present at this level, greater on the left. 2. Acquired multilevel spinal stenosis and foraminal narrowing as above. Reading Location: [facility] Thoracic Spine MRI 03/26/24 05:55 IMPRESSION: Diffuse osseous metastatic disease throughout the thoracic spine, greatest involving the right T3 vertebral body and pedicle which are expanded and result in mild spinal stenosis as well as severe right foraminal narrowing at T3-T4. Reading Location: [facility] Physical Exam Const alert, oriented x3, no apparent distress and average body habitus Constitutional Narrative: Upper middle-aged male, sitting back comfortably in bed, conversing normally, in no acute distress. Stable. General Appearance: cooperative and comfortable HEENT normocephalic, head/scalp atraumatic, hearing grossly normal bilaterally, nasal mucous membranes and turbinates normal and moist oral mucous membranes Eyes PERRL, EOMs intact bilaterally and conjunctivae normal Neck full ROM Chest inspection of chest normal Resp normal respiratory effort, normal air movement, no use of accessory muscles and clear to auscultation bilaterally Cardio regular rate, regular rhythm, no murmurs and peripheral pulses 2+ throughout GI normal to inspection, nondistended, normoactive bowel sounds, soft to palpation, non-tender and non-distended Back/Spine Back/Spine Narrative: Mild tenderness to palpation diffusely in low back. Stable. Extremity normal to inspection, full ROM and no pedal edema Skin no rashes or lesions noted Neuro no focal motor deficits Speech: speech normal Psych mental status grossly normal Assessment & Plan Assessment/Plan (1) Prostate cancer: (2) Metastatic cancer to spine: PLAN: Plan Patient is a 69-year-old male who presented [facility] ED on 03/25/2024 with worsening low back pain with left leg radiculopathy. 1. Suspected new diagnosis of prostate cancer with spinal metastases ? CT lumbar spine on admit showed large lytic lesion within L2 and S1 with additional smaller lytic lesions throughout the remainder of the visualized spine, along with a severely enlarged prostate with internal calcifications and enlarged bilateral iliac lymph nodes. PSA greater than 2000. Low back pain and lower extremity edema presumed secondary to likely spinal metastases and poor venous return from lymphadenopathy. MRI C/T/L-spine without contrast on 03/26 with findings consistent with diffuse osseous metastatic disease including a large expansile lesion in the left S1 vertebral body resulting in severe spinal stenosis at L5-S1 and encasement of the left S1 nerve root. Plan is for transfer to , has been accepted to oncology, awaiting bed placement. Pain control here with scheduled Tylenol, p.o. tramadol and IV morphine as needed. Chronic medical conditions: ? Parkinson's disease: Continue home Sinemet. ? Hypertension: Continue home Toprol. DVT prophylaxis: Lovenox CODE STATUS: DNR CCA, okay to intubate Expected disposition: Transfer to once bed is available Total clinical time spent by myself addressing the patient's medical issues, reviewing all the data, and collaborating with patient's care team: 35 minutes. Charges/Coding Visit Charges Inpatient E&M: 21239 Subs Hosp L2
[2024-03-27 15:52] VITALS: BP 103/62; PULSE 84; RESP 17; TEMP 36.8; O2SAT 95
[2024-03-27 22:00] VITALS: BP 148/88; PULSE 84; RESP 16; TEMP 37; O2SAT 98
[2024-03-28 03:30] VITALS: BP 164/93; PULSE 83; RESP 14; TEMP 36.4; O2SAT 95
[2024-03-28 03:53] VITALS: BMI 25.0
[2024-03-28] MEDS: Ketorolac 15 MG/ML Vial IV (04:26)
[2024-03-28] MEDS: 0.9% Saline Lock 10 ML Syringe IV (04:27)
--- NOTE | 2024-03-28 08:45 | DCINST_ITS ---
Discharge Instructions Diet Discharge Diet: No restrictions DC O2, CPAP, BIPAP needs Home O2 Discharge instructions: No Dressing / Incision Discharge Activity: No Restrictions Follow Up Care Test Results: Test results from this visit will be discussed in further detail at your follow- up appointment, if applicable. Discharge Plan Admission Admit Date/Time: 03/25/24 23:45 Primary Reason for Your Visit: low back pain Attending Provider: Francesco Neal Primary Care Provider: Danna Delgadillo NP Consulting Providers: Sanaz Davila Discharge Orders/Prescriptions Prescriptions: Continued metoprolol succinate 25 mg tablet extended release 24 hr 25 mg PO DAILY carbidopa-levodopa 25-100 mg tablet 3 tab PO TID omega 8-mgc-mvl-fish oil [Fish Oil] 1,200 (144-216) mg capsule PO DAILY Referrals / Follow Up: Danna Delgadillo NP, [employer] [Primary Care Provider] - Disposition Disposition (needs filled in before D/C Order can be placed): Acute Care Hospital
--- NOTE | 2024-03-28 08:46 | PCM.DC.SUM ---
Providers Date of Admission: 03/25/24 Date of Discharge: 03/28/24 Primary Care Physician: Danna Delgadillo, TRES Reason For Visit: METASTATIC CA WITH SPINAL LYTIC LESIONS, Diagnosis Discharge Diagnosis (1) Prostate cancer: Status: Acute Code(s): C61 - Malignant neoplasm of prostate (2) Metastatic cancer to spine: Status: Acute Code(s): C79.51 - Secondary malignant neoplasm of bone Medications at Discharge Home Medications carbidopa 25 mg-levodopa 100 mg tablet 3 tab PO TID 03/25/24 metoprolol succinate 25 mg tablet,extended release 24 hr 25 mg PO DAILY 03/25/24 omega 1-ylj-hmj-fish oil 1,200 mg (144 mg-216 mg) capsule (Fish Oil) cap PO DAILY Supplement 03/25/24 Hospital Course Operations None Procedures EKG and - (CT lumbar spine, MRI C/T/L-spine, chest x-ray, venous duplex ultrasound) Summary of Care Provided Minutes Spent on Discharge: 35 Hospital Course: Patient is a 69-year-old male who presented [facility] ED on 03/25/2024 with worsening low back pain with left leg radiculopathy. Hospital course as noted below. Patient transferred to on 03/28 for further care. 1. Suspected new diagnosis of prostate cancer with spinal metastases ? CT lumbar spine on admit showed large lytic lesion within L2 and S1 with additional smaller lytic lesions throughout the remainder of the visualized spine, along with a severely enlarged prostate with internal calcifications and enlarged bilateral iliac lymph nodes. PSA greater than 2000. Low back pain and lower extremity edema presumed secondary to likely spinal metastases and poor venous return from lymphadenopathy. MRI C/T/L-spine without contrast on 03/26 with findings consistent with diffuse osseous metastatic disease including a large expansile lesion in the left S1 vertebral body resulting in severe spinal stenosis at L5-S1 and encasement of the left S1 nerve root. Pain control here with scheduled Tylenol, p.o. tramadol and IV morphine as needed. Transferred to on 03/28 for further care. Chronic medical conditions: ? Parkinson's disease: Continue home Sinemet. ? Hypertension: Continue home Toprol. Total clinical time spent by myself addressing the patient's medical issues, reviewing all the data, and collaborating with patient's care team: 35 minutes. Physical Exam Const alert, oriented x3, no apparent distress and average body habitus Constitutional Narrative: Upper middle-aged male, sitting back comfortably in bed, conversing normally, in no acute distress. Stable. General Appearance: cooperative and comfortable HEENT normocephalic, head/scalp atraumatic, hearing grossly normal bilaterally, nasal mucous membranes and turbinates normal and moist oral mucous membranes Eyes PERRL, EOMs intact bilaterally and conjunctivae normal Neck full ROM Chest inspection of chest normal Resp normal respiratory effort, normal air movement, no use of accessory muscles and clear to auscultation bilaterally Cardio regular rate, regular rhythm, no murmurs and peripheral pulses 2+ throughout GI normal to inspection, nondistended, normoactive bowel sounds, soft to palpation, non-tender and non-distended Back/Spine Back/Spine Narrative: Mild tenderness to palpation diffusely in low back. Stable. Extremity normal to inspection, full ROM and no pedal edema Skin no rashes or lesions noted Neuro no focal motor deficits Speech: speech normal Psych mental status grossly normal Weight / BMI Weight Weight: 83.6 kg Body Mass Index (BMI) 25.0 ABG / Lab / Microbiology Data 03/27/24 04:24 03/27/24 04:24 D/C Instructions Discharge Diet: No restrictions DC O2, CPAP, BIPAP Needs Home O2 Discharge instructions: No Meaningful Use Info Meaningful Use Meaningful Use Diagnoses (Choose all that apply): None applicable Ischemic Stroke Statin Dosing Therapy Reference: STATIN DOSE THERAPY REFERENCE: * Patients > 75 years receive moderate or high dose statin therapy. * Patients 75 years or YOUNGER should receive HIGH intensity statin dose unless contraindicated. You will be required to document reason for non-treatment if statin daily dose does not meet guidelines. HIGH DOSE STATIN THERAPY DAILY Atorvastatin > than or = to 40 mg Rosuvastatin > than or = to 20 mg Amlodipine + Atorvastatin > than or = to 2.5/40 mg Ezetimibe + Simvastatin 10/80 mg Simvastatin 80mg Discharge Plan Admission Admit Date/Time: 03/25/24 23:45 Primary Reason for Your Visit: low back pain Attending Provider: Francesco Neal Primary Care Provider: Danna Delgadillo NP Consulting Providers: Sanaz Davila Discharge Orders/Prescriptions Prescriptions: Continued metoprolol succinate 25 mg tablet extended release 24 hr 25 mg PO DAILY carbidopa-levodopa 25-100 mg tablet 3 tab PO TID omega 2-mgx-rfg-fish oil [Fish Oil] 1,200 (144-216) mg capsule PO DAILY Referrals / Follow Up: Danna Delgadillo [employer], [employer] [Primary Care Provider] - Disposition Disposition (needs filled in before D/C Order can be placed): Acute Care Hospital Charges/Coding Visit Charges Inpatient E&M: 86247 Disch Hosp >30min
== END 2024-03-28 05:02 | disposition short-term general hospital (02) | DRG 723 ==
LOC: ED 20:59 → PCU 03-26 01:24
PROVIDERS: Admitting Provider Family Medicine; Emergency Provider Surgery; PCP Nurse Practitioner Family; Visit Provider Hospitalist
DX: C61 Malignant neoplasm of prostate (principal); C79.51 Secondary malignant neoplasm of bone; Z66 Do not resuscitate; G20.A1 Parkinson's disease without dyskinesia, without mention of fluctuations; I12.9 Hypertensive chronic kidney disease with stage 1 through stage 4 chronic kidney disease, or unspecified chronic kidney disease; E87.6 Hypokalemia; N18.2 Chronic kidney disease, stage 2 (mild); M48.07 Spinal stenosis, lumbosacral region; Z79.899 Other long term (current) drug therapy
CPT/HCPCS: 36415; 71045; 72131; 72141; 72146; 72148; 80048; 80053; 81001; 83735; 83880; 84100; 84153; 84484; 85025; 85027; 85610; 85730; 92610; 93005; 93970; 94668; 97162; 97166; 99285; A4216; J2405